=== PATIENT | female | born 1985 | race Caucasian/White ===

== ENCOUNTER → 2016-12-11 | Outpatient (CLI) | payer OTHER ==
--- NOTE | 2016-12-11 17:28 | DX ---
PA and lateral chest History: Heart murmur. Comparison: None available. Technique: The patient stated that she had sex days ago and does not believe that she is . Th e extreme low risk was explained to the patient and consent was obtained. Findings: The lungs are clear. There is no pneumothorax or pleural effusion. The heart and pulmona ry vasculature are normal. The bones are normal. Impression: Normal chest.
== END ==
LOC: FIMAGING 15:41
PROVIDERS: ATTEND Internal Medicine Cardiovascular Disease
DX: R01.1 Cardiac murmur, unspecified (principal)

== ENCOUNTER 2017-01-24 08:09 | Day surgery (SDC) | payer OTHER ==
[2017-01-24] MEDS ORDERED: MIDAZOLAM 2 MG/2 ML VIAL IVP ONE (08:15)
[2017-01-24] MEDS ORDERED: fentaNYL 100 MCG/2 ML INJ IVP ONE (08:15)
[2017-01-24] MEDS ORDERED: NS 1,000 ML IV ONE (08:15)
[2017-01-24] MEDS ORDERED: BENZOCAINE UNIT DOSE SPRAY HURRICAINE MM ONE (08:15)
[2017-01-24] MEDS ORDERED: MIDAZOLAM 2 MG/2 ML VIAL ONE ×2 (10:07→10:16)
[2017-01-24] MEDS ORDERED: fentaNYL 100 MCG/2 ML INJ ONE (10:15)
[2017-01-24] MEDS ORDERED: ONDANSETRON 4 MG/2 ML VIAL ONE (10:26)
== END 2017-01-24 12:38 | disposition home or self-care (01) ==
LOC: FCATH 08:09
PROVIDERS: ATTEND Internal Medicine Cardiovascular Disease
PROC: B245ZZ4 Ultrasonography of Left Heart, Transesophageal (ICD-10-PCS; principal; 2017-01-24)
DX: R01.1 Cardiac murmur, unspecified (principal)
CPT/HCPCS: J2250; J2405; J3010